=== PATIENT | female | born 1950 | race African-American/Black ===

== ENCOUNTER 2017-05-15 14:44 | Observation (INO) | payer MEDICARE, OTHER ==
[~2017-05-15] VITALS: Ht 165.1 cm; Wt 90.9 kg
--- NOTE | 2017-05-15 15:07 | EKG ---
[facility] [address] [place] [address] Test Date: 2017-05-15 Test Time: 14:50:29 Pat Name: RATNA MUÑOZ Department: Room: Gender: F Public Defender: : 1950 Requested By: TULIO MELO Order Number: [id number] Reading MD: Aguila Penaloza Measurements Intervals [place] Rate: 62 P: 31 RI: 170 QRS: -55 QRSD: 136 T: -29 QT: 468 QTc: 478 Interpretive Statements SINUS RHYTHM ABNORMAL LEFT AXIS DEVIATION LEFT ANTERIOR FASCICULAR BLOCK RIGHT BUNDLE BRANCH BLOCK BIFASCICULAR BLOCK Electronically Signed On 05-17-2017 11:15:35 CDT by Aguila Penaloza
--- NOTE | 2017-05-15 15:12 | EKG ---
[facility] [address] [place] [address] Test Date: 2017-05-15 Test Time: 14:52:51 Pat Name: RATNA MUÑOZ Department: Room: Gender: F Excellence Manager: : 1950 Requested By: TULIO MELO Order Number: [id number] Reading MD: Aguila Penaloza Measurements Intervals [place] Rate: 62 P: 42 GA: 166 QRS: -58 QRSD: 142 T: -22 QT: 454 QTc: 463 Interpretive Statements SINUS RHYTHM ABNORMAL LEFT AXIS DEVIATION LEFT ANTERIOR FASCICULAR BLOCK NON SPECIFIC INTRAVENTRICULAR BLOCK Electronically Signed On 05-17-2017 11:15:43 CDT by Aguila Penaloza
--- NOTE | 2017-05-15 15:24 | RAD ---
Portable chest x-ray without comparison for mid chest pain today. Findings: Right hemidiaphragm is elevated. Lungs are clear. Heart size within normal limits. Postsurgical changes of the neck are seen. There is atherosclerosis. Glenohumeral osteoarthritis on the right is also evident. Impression: 1. No acute cardiopulmonary abnormality. 2. Elevation right hemidiaphragm. 3. Other chronic changes as described
--- NOTE | 2017-05-15 15:36 | PHYS DOC ---
Past Medical History Past Medical History: Asthma, CAD, Diabetes-Type II, Hypertension, Renal Failure Past Surgical History: Appendectomy, Cholecystectomy, Tonsillectomy, Other Additional Past Surgical Histo: SHUNT IN R ARM Alcohol Use: None Drug Use: Marijuana Adult General Chief Complaint Chief Complaint: chest pain HPI HPI Patient is a 66 year old female who presents with chest pain. Patient states it started while she was at dialysis and had about one quarter of her dialysis remaining, she states the pain was sharp, nonradiating, she had associated shortness of breath and diaphoresis. No nausea or vomiting. Patient reports that she had chest pain like this in the past and she had a heart attack. Her last cardiac catheter was greater than one year ago but was reportedly clean. Her MS was in the late s. She sees all of her doctors at , she requested to go there but was on diversion. She has taken a baby aspirin today, her chest pain has since resolved, she denies any cough or fevers, reports that she's had some sinus congestion. Denies h/o PE or DVT. Patient states that she is scheduled for a resection of a cancerous tumor at tomorrow. Review of Systems Review of Systems Constitutional: Denies fever or chills [] Eyes: Denies change in visual acuity, redness, or eye pain [] HENT: Denies nasal congestion or sore throat [] Respiratory: Denies cough or shortness of breath [] Cardiovascular: No additional information not addressed in HPI [] GI: Denies abdominal pain, nausea, vomiting, bloody stools or diarrhea [] : Denies dysuria or hematuria [] Musculoskeletal: Denies back pain or joint pain [] Integument: Denies rash or skin lesions [] Neurologic: Denies headache, focal weakness or sensory changes [] Endocrine: reports polyuria , denies polydipsia [] Current Medications Current Medications Current Medications Medications (Trade) Dose Ordered Sig/Jemima Start Time Stop Time Status Last Admin Dose Admin Aspirin (Lon Aspirin) 325 mg 1X ONCE 05/15/17 16:00 05/15/17 16:01 Cancel Aspirin (Children'S Aspirin) 243 mg 1X ONCE 05/15/17 15:45 05/15/17 15:48 DC 05/15/17 15:56 243 MG Allergies Allergies Allergies Coded Allergies Type Severity Reaction Last Updated Verified Penicillins Allergy Intermediate 05/15/17 Yes atorvastatin Allergy Intermediate 05/15/17 Yes codeine Allergy Unknown 05/15/17 Yes Physical Exam Physical Exam Constitutional: Well developed, well nourished, no acute distress, non-toxic appearance. obese HENT: Normocephalic, atraumatic, bilateral external ears normal, oropharynx moist, no oral exudates, nose normal. [] Eyes: PERRLA, EOMI, conjunctiva normal, no discharge. [] Neck: Normal range of motion, no tenderness, supple, no stridor. [] Cardiovascular:Heart rate regular with regular rhythm, no murmur [] Lungs & Thorax: Bilateral breath sounds clear to auscultation, no wheeze or crackles Abdomen: Bowel sounds normal, soft, no tenderness, no masses, no pulsatile masses. [] Skin: Warm, dry, no erythema, no rash. [] Back: No tenderness, no CVA tenderness. [] Extremities: No tenderness, no cyanosis, no clubbing, ROM intact, no edema. [] Neurologic: Alert and oriented X 3, normal motor function, normal sensory function, no focal deficits noted. [] Psychologic: Affect normal, judgement normal, mood normal. [] Current Patient Data Vital Signs Vital Signs Date Time Temp Pulse Resp B/P (MAP) Pulse Ox O2 Delivery O2 Flow Rate FiO2 05/15/17 16:15 64 19 153/65 (94) 94 Room Air 05/15/17 15:02 98.0 98.0 Lab Values Laboratory Tests Test 05/15/17 15:35 White Blood Count 12.3 x10^3/uL (4.0-11.0) H Red Blood Count 3.59 x10^6/uL (3.50-5.40) Hemoglobin 11.0 g/dL (12.0-15.5) L Hematocrit 33.9 % (36.0-47.0) L Mean Corpuscular Volume 94 fL (79-100) Mean Corpuscular Hemoglobin 31 pg (25-35) Mean Corpuscular Hemoglobin Concent 33 g/dL (31-37) Red Cell Distribution Width 15.5 % (11.5-14.5) H Platelet Count 251 x10^3/uL (140-400) Neutrophils (%) (Auto) 73 % (31-73) Lymphocytes (%) (Auto) 15 % (24-48) L Monocytes (%) (Auto) 9 % (0-9) Eosinophils (%) (Auto) 2 % (0-3) Basophils (%) (Auto) 1 % (0-3) Neutrophils # (Auto) 9.0 x10^3uL (1.8-7.7) H Lymphocytes # (Auto) 1.9 x10^3/uL (1.0-4.8) Monocytes # (Auto) 1.1 x10^3/uL (0.0-1.1) Eosinophils # (Auto) 0.2 x10^3/uL (0.0-0.7) Basophils # (Auto) 0.1 x10^3/uL (0.0-0.2) Prothrombin Time 12.0 SEC (11.7-14.0) Prothrombin Time INR 0.9 (0.8-1.1) Sodium Level 141 mmol/L (136-145) Potassium Level 4.4 mmol/L (3.5-5.1) Chloride Level 100 mmol/L (98-107) Carbon Dioxide Level 34 mmol/L (21-32) H Anion Gap 7 (6-14) Blood Urea Nitrogen 29 mg/dL (7-20) H Creatinine 3.9 mg/dL (0.6-1.0) H Estimated GFR (Cockcroft-Gault) 13.9 BUN/Creatinine Ratio 7 (6-20) Glucose Level 160 mg/dL (70-99) H Calcium Level 8.8 mg/dL (8.5-10.1) Magnesium Level 2.2 mg/dL (1.8-2.4) Total Bilirubin 0.2 mg/dL (0.2-1.0) Aspartate Amino Transferase (AST) 16 U/L (15-37) Alanine Aminotransferase (ALT) 27 U/L (14-59) Alkaline Phosphatase 143 U/L (46-116) H Troponin I Quantitative < 0.017 ng/mL (0.000-0.055) Total Protein 7.1 g/dL (6.4-8.2) Albumin 3.5 g/dL (3.4-5.0) Albumin/Globulin Ratio 1.0 (1.0-1.7) Laboratory Tests 05/15/17 15:35 Laboratory Tests 05/15/17 15:35 EKG EKG 62 bpm, sinus, left axis, QTC 463, QRS 142, no ST elevation or depression, R wave inversion V3-V5, III, avF, no comparison available, interpreted by me.[] Radiology/Procedures Radiology/Procedures 1 view CXR rotated, no acute pulmonary [] Course & Med Decision Making Course & Med Decision Making Pertinent Labs and Imaging studies reviewed. (See chart for details) pt given aspirin, no active chest pain at the time of my evaluation. EKG/labs/ CXR performed. No acute findings, pt admitted to Dr. Collier for ongoing monitoring, serial enzymes. Pt cannot be transferred to as they are currently closed. I contacted as pt was to have surgery on her kidney tomorrow to notify them. Dragon Disclaimer Dragon Disclaimer This electronic medical record was generated, in whole or in part, using a voice recognition dictation system. Departure Departure Impression: Primary Impression: Unstable angina Disposition: ADMITTED INPATIENT Condition: STABLE TULIO MELO MD May 15, 2017 15:36
[2017-05-15] MEDS ORDERED: ASPIRIN CHEWABLE 81 MG TABLET. PO ONE (15:45)
[2017-05-15 15:48] LABS: BASO # 0.1 x10^3/uL (0.0-0.2); BASO % 1 % (0-3); EOS % 2 % (0-3); HEMATOCRIT 33.9 % (36.0-47.0); LYMPH # 1.9 x10^3/uL (1.0-4.8); LYMPH % 15 % (24-48); MEAN CORPUSCULAR HEMOGLOBIN 31 pg (25-35); MEAN CORPUSCULAR HGB CONC 33 g/dL (31-37); MEAN CORPUSCULAR VOLUME 94 fL (79-100); MONO % 9 % (0-9); NEUT % 73 % (31-73); PLATELET COUNT 251 x10^3/uL (140-400); RED BLOOD COUNT 3.59 x10^6/uL (3.50-5.40); RED CELL DISTRIBUTION WIDTH 15.5 % (11.5-14.5); WHITE BLOOD COUNT 12.3 x10^3/uL (4.0-11.0)
[2017-05-15 15:57] LABS: INR 0.9 (0.8-1.1)
[2017-05-15 16:00] LABS: CALCIUM 8.8 mg/dL (8.5-10.1); CREATININE 3.9 mg/dL (0.6-1.0); GFR 13.9; POTASSIUM 4.4 mmol/L (3.5-5.1)
[2017-05-15] MEDS ORDERED: ASPIRIN 325 MG TABLET PO ONE (16:00)
[2017-05-15 16:06] LABS: ALBUMIN 3.5 g/dL (3.4-5.0); MAGNESIUM 2.2 mg/dL (1.8-2.4); TOTAL BILIRUBIN 0.2 mg/dL (0.2-1.0); TOTAL PROTEIN 7.1 g/dL (6.4-8.2)
[2017-05-15 18:15] LABS: BILIRUBIN,URINE SMALL (NEG); GLUCOSE,URINE NEGATIVE (NEG); NITRITE,URINE NEGATIVE (NEG); PROTEIN,URINE 100 mg/dL (NEG-TRACE)
[2017-05-15 18:22] LABS: BACTERIA,URINE MANY /HPF (0-FEW); RBC,URINE >40 /HPF (0-2); SQUAMOUS EPITHELIAL CELL,UR MANY /LPF; WBC,URINE 20-40 /HPF (0-4)
[2017-05-15 18:27] VITALS: BP 132/63
[2017-05-15 19:57] VITALS: BP 148/64
[2017-05-15] MEDS ORDERED: METO25TA9 PO (20:04)
[2017-05-15] MEDS ORDERED: CALC650T6 PO (20:04)
[2017-05-15] MEDS ORDERED: ACET325T9 PO (20:04)
[2017-05-15] MEDS ORDERED: HYDR-2762 PO (20:04)
[2017-05-15] MEDS ORDERED: MULT-650 PO (20:04)
[2017-05-15] MEDS ORDERED: RANO500T2 PO (20:04)
[2017-05-15] MEDS ORDERED: CRESTOR20 MG PO (20:04)
[2017-05-15] MEDS ORDERED: ALBU0.63 NEB (20:04)
[2017-05-15] MEDS ORDERED: OMEP40CA5 PO (20:04)
[2017-05-15] MEDS ORDERED: POLY17PO29 PO (20:04)
[2017-05-15] MEDS ORDERED: DOCU100C28 PO (20:04)
[2017-05-15] MEDS ORDERED: FLUT9.9S NS (20:04)
[2017-05-15] MEDS ORDERED: GABA-586 PO (20:04)
[2017-05-15] MEDS ORDERED: POLY15DR7 OP (20:04)
[2017-05-15] MEDS ORDERED: INSU100C SQ (20:04)
[2017-05-15] MEDS ORDERED: LEVO150T PO (20:04)
[2017-05-15] MEDS ORDERED: NITR0.4T SL (20:04)
[2017-05-15] MEDS ORDERED: LORA0.5T96 PO (20:04)
[2017-05-15] MEDS ORDERED: INSU100I13 SQ (20:04)
[2017-05-15] MEDS ORDERED: AMLO10TA2 PO (20:04)
[2017-05-15] MEDS ORDERED: OMEG-57 PO (20:04)
[2017-05-15] MEDS ORDERED: ASPI-482 PO (20:04)
[2017-05-15] MEDS ORDERED: CHOL10003 PO (20:04)
[2017-05-15] MEDS ORDERED: BUSP15TA PO (20:05)
[2017-05-15 22:58] VITALS: BP 156/59
[2017-05-15] MEDS ORDERED: HYDROcodone/APAP 7.5/325MG 1 TAB TABLET PO PRN (23:30)
[2017-05-15] MEDS ORDERED: NITROGLYCERIN SUBLINGUAL 0.4 MG BOTTLE OF 25. SL PRN (23:30)
[2017-05-16] MEDS ORDERED: INSULIN DETEMIR 300 UNITS/3 ML INSULN.PEN. SQ SCH (00:15)
--- NOTE | 2017-05-16 00:15 | HP ---
ADMIT DATE: 05/15/2017 CHIEF COMPLAINT: Chest pain. HISTORY OF PRESENT ILLNESS: The patient is a 66-year-old woman who presented with chest pain that developed at time of completion of dialysis. The patient relates that pain is in the middle of her chest and actually is recurrent. She has nitro at home and typically takes nitro. At this time, however, she was at dialysis and when she mentioned this to the nurse slowly of activity developed and she was quickly transported to the Emergency Room for further workup. She typically goes to and has all her specialist there but unfortunately, the hospital was on diversion and the patient was brought here. She relates that she actually sees her textile colorist formulator every 3 months and is due for another visit next month. She had a fairly recent admission during which her heart actually was evaluated and found stable. She was told she had angina but does not remember the exact details. Further note, she was scheduled to undergo nephrectomy for RCC tomorrow at . PAST MEDICAL HISTORY: End-stage renal disease, CAD, diabetes, hypertension and asthma. Her shunt is in her right arm. PAST SURGICAL HISTORY: She is status post appendectomy, cholecystectomy and tonsillectomy. FAMILY HISTORY: Multiple family members with high blood pressure and heart disease. She is the only dialysis patient out of 16 siblings. SOCIAL HISTORY: Lives with her family and no toxic habits. ALLERGIES: PENICILLIN, ATORVASTATIN and CODEINE. MEDICATIONS: MAR reconciled with her home medications. REVIEW OF SYSTEMS: Chest pain is now completely resolved. She feels fine and no complaints. PHYSICAL EXAMINATION: VITAL SIGNS: From today show a blood pressure of 148/64, heart rate of 65, respiratory rate at 16 and she is afebrile. GENERAL: This is an obese 66-year-old -[place]ian woman, alert and oriented, no acute distress, very pleasant. HEENT: Shows no scleral icterus. NECK: Supple. LUNGS: Clear to auscultation bilaterally. HEART: Regular rate and rhythm. ABDOMEN: Has positive bowel sounds. Soft and nontender. EXTREMITIES: Show no edema. SKIN: Warm, soft and dry without any rash. LABORATORY DATA: CBC with a WBC of 12.3, hemoglobin 11.0 and platelets of 251. Chemistries with a BUN and creatinine of 29 and 3.9, normal electrolytes, CO2 at 34 and glucose 160. Alkaline phosphatase at 143, otherwise normal LFTs. Urine with 20-40 WBC and many bacteria. IMAGING DATA: Chest x-ray shows no acute cardiopulmonary abnormality. ASSESSMENT AND PLAN: The patient is a 66-year-old woman who presented from dialysis with chest pain and apparently known anginal symptoms without any further intervention planned at least according to her. We will have to try and obtain records from [facility] in the morning. Chest pain is now controlled. We will continue all her home medications. Main issue, however, today is urinary tract infection for which she will require treatment. We will start her empirically on ceftriaxone. This would certainly throw her out of nephrectomy territory at this time. She has already resigned and that surgery would not happen tomorrow. She has an extensive medications list, many medications for coronary artery disease and end-stage renal disease. We will continue these. We will notify Nephrology in the morning if prolonged hospitalization should be indicated. She did get dialysis today and hopefully, will not require further attention tomorrow. JANELLE WU MD DR: ISABEL/nts JOB#: [id number] / [id number] SRINI Blanco MD MTDD
[2017-05-16 03:07] VITALS: BP 152/66
[2017-05-16] MEDS ORDERED: LEVOTHYROXINE 75 MCG TABLET PO SCH (06:00)
[2017-05-16 07:00] VITALS: BP 146/65
[2017-05-16] MEDS ORDERED: INSULIN ASPART 300 UNITS/3 ML INSULN.PEN SQ SCH (07:30)
[2017-05-16] MEDS ORDERED: PANTOPRAZOLE 40 MG TABLET.DR. PO SCH (07:30)
[2017-05-16] MEDS ORDERED: CALCIUM CARBONATE 500 MG TABLET PO SCH (08:00)
[2017-05-16] MEDS ORDERED: ALBUTEROL SULFATE 2.5 MG/3 ML NEBU. NEB SCH (08:00)
[2017-05-16] MEDS ORDERED: RANOLAZINE 500 MG TAB.ER.12H PO SCH (09:00)
[2017-05-16] MEDS ORDERED: FLUTICASONE 50MCG/NASAL SPRAY 16GM BOTTLE. NS SCH (09:00)
[2017-05-16] MEDS ORDERED: amLODIPine BESYLATE 10 MG TABLET PO SCH (09:00)
[2017-05-16] MEDS ORDERED: GABAPENTIN 300 MG CAPSULE. PO SCH (09:00)
[2017-05-16] MEDS ORDERED: LORazepam 0.5 MG TABLET PO SCH (09:00)
[2017-05-16] MEDS ORDERED: NON FORMULARY ITEM (Rosuvastatin Calcium (Crestor) 1 TAB) PO SCH (09:00)
[2017-05-16] MEDS ORDERED: DOCUSATE SODIUM 100 MG CAPSULE. PO SCH (09:00)
[2017-05-16] MEDS ORDERED: ACETAMINOPHEN 325 MG TABLET. PO SCH (09:00)
[2017-05-16] MEDS ORDERED: MULTIVITAMIN with MINERAL TABLET. PO SCH (09:00)
[2017-05-16] MEDS ORDERED: NON FORMULARY ITEM (Albuterol Sulfate (Albuterol Sulfate Neb Soln) 1 VIAL) NEB SCH (09:00)
[2017-05-16] MEDS ORDERED: POLYETHYLENE GLYCOL 3350 17 GM PACKET. PO SCH (09:00)
[2017-05-16] MEDS ORDERED: busPIRone 5 MG TABLET. PO SCH (09:00)
[2017-05-16] MEDS ORDERED: CHOLECALCIFEROL (VITAMIN D3) 1,000 UNIT TABLET PO SCH (09:00)
[2017-05-16] MEDS ORDERED: POLYVINYL ALCOHOL 1.4% OPHTH SOLUTION 15ML BOTTLE. OU SCH (09:00)
[2017-05-16] MEDS ORDERED: ASPIRIN ENTERIC COATED 81 MG TABLET.DR. PO SCH (09:00)
[2017-05-16] MEDS ORDERED: METOPROLOL SUCC 24HR ER 25 MG TAB.ER.24H. PO SCH (09:00)
[2017-05-16] MEDS ORDERED: ONDANSETRON PF 4 MG/2 ML VIAL. IV PRN (09:15)
[2017-05-16 09:37] VITALS: BP 146/65
--- NOTE | 2017-05-16 16:15 | PDOC3 ---
Discharge Summary Visit Information Date of Admission: May 15, 2017 Date of Discharge: May 16, 2017 Admitting Diagnosis: chest pain Final Diagnosis chest pain from poss renal cell cancer ESRD obesity \ Problems Medical Problems: (1) Unstable angina Status: Acute Brief Hospital Course Allergies Allergies Coded Allergies Type Severity Reaction Last Updated Verified Penicillins Allergy Intermediate 05/15/17 Yes atorvastatin Allergy Intermediate 05/15/17 Yes codeine Allergy Unknown 05/15/17 Yes Vital Signs Vital Signs Date Time Temp Pulse Resp B/P (MAP) Pulse Ox O2 Delivery O2 Flow Rate FiO2 05/16/17 09:37 75 146/65 05/16/17 08:02 97 Room Air 05/16/17 07:00 96.5 17 96.5 Lab Results Laboratory Tests Test 05/15/17 15:35 05/15/17 17:55 05/15/17 20:15 05/15/17 22:25 White Blood Count 12.3 x10^3/uL (4.0-11.0) Red Blood Count 3.59 x10^6/uL (3.50-5.40) Hemoglobin 11.0 g/dL (12.0-15.5) Hematocrit 33.9 % (36.0-47.0) Mean Corpuscular Volume 94 fL (79-100) Mean Corpuscular Hemoglobin 31 pg (25-35) Mean Corpuscular Hemoglobin Concent 33 g/dL (31-37) Red Cell Distribution Width 15.5 % (11.5-14.5) Platelet Count 251 x10^3/uL (140-400) Neutrophils (%) (Auto) 73 % (31-73) Lymphocytes (%) (Auto) 15 % (24-48) Monocytes (%) (Auto) 9 % (0-9) Eosinophils (%) (Auto) 2 % (0-3) Basophils (%) (Auto) 1 % (0-3) Neutrophils # (Auto) 9.0 x10^3uL (1.8-7.7) Lymphocytes # (Auto) 1.9 x10^3/uL (1.0-4.8) Monocytes # (Auto) 1.1 x10^3/uL (0.0-1.1) Eosinophils # (Auto) 0.2 x10^3/uL (0.0-0.7) Basophils # (Auto) 0.1 x10^3/uL (0.0-0.2) Prothrombin Time 12.0 SEC (11.7-14.0) Prothromb Time International Ratio 0.9 (0.8-1.1) Sodium Level 141 mmol/L (136-145) Potassium Level 4.4 mmol/L (3.5-5.1) Chloride Level 100 mmol/L (98-107) Carbon Dioxide Level 34 mmol/L (21-32) Anion Gap 7 (6-14) Blood Urea Nitrogen 29 mg/dL (7-20) Creatinine 3.9 mg/dL (0.6-1.0) Estimated GFR (Cockcroft-Gault) 13.9 BUN/Creatinine Ratio 7 (6-20) Glucose Level 160 mg/dL (70-99) Calcium Level 8.8 mg/dL (8.5-10.1) Magnesium Level 2.2 mg/dL (1.8-2.4) Total Bilirubin 0.2 mg/dL (0.2-1.0) Aspartate Amino Transf (AST/SGOT) 16 U/L (15-37) Alanine Aminotransferase (ALT/SGPT) 27 U/L (14-59) Alkaline Phosphatase 143 U/L (46-116) Troponin I Quantitative < 0.017 ng/mL (0.000-0.055) < 0.017 ng/mL (0.000-0.055) Total Protein 7.1 g/dL (6.4-8.2) Albumin 3.5 g/dL (3.4-5.0) Albumin/Globulin Ratio 1.0 (1.0-1.7) Urine Collection Type Unknown Urine Color Yellow Urine Clarity Cloudy Urine pH 8.0 Urine Specific [place] 1.020 Urine Protein 100 mg/dL (NEG-TRACE) Urine Glucose (UA) Negative mg/dL (NEG) Urine Ketones (Stick) Negative mg/dL (NEG) Urine Blood Large (NEG) Urine Nitrite Negative (NEG) Urine Bilirubin Small (NEG) Urine Urobilinogen Dipstick 1.0 mg/dL (0.2 mg/dL) Urine Leukocyte Esterase Large (NEG) Urine RBC >40 /HPF (0-2) Urine WBC 20-40 /HPF (0-4) Urine Squamous Epithelial Cells Many /LPF Urine Bacteria Many /HPF (0-FEW) Glucose (Fingerstick) 159 mg/dL (70-99) Test 05/16/17 04:25 05/16/17 06:26 05/16/17 07:41 Troponin I Quantitative < 0.017 ng/mL (0.000-0.055) Glucose (Fingerstick) 82 mg/dL (70-99) 118 mg/dL (70-99) Laboratory Tests Test 05/15/17 17:55 05/15/17 20:15 05/15/17 22:25 05/16/17 04:25 Urine Collection Type Unknown Urine Color Yellow Urine Clarity Cloudy Urine pH 8.0 Urine Specific [place] 1.020 Urine Protein 100 mg/dL (NEG-TRACE) Urine Glucose (UA) Negative mg/dL (NEG) Urine Ketones (Stick) Negative mg/dL (NEG) Urine Blood Large (NEG) Urine Nitrite Negative (NEG) Urine Bilirubin Small (NEG) Urine Urobilinogen Dipstick 1.0 mg/dL (0.2 mg/dL) Urine Leukocyte Esterase Large (NEG) Urine RBC >40 /HPF (0-2) Urine WBC 20-40 /HPF (0-4) Urine Squamous Epithelial Cells Many /LPF Urine Bacteria Many /HPF (0-FEW) Glucose (Fingerstick) 159 mg/dL (70-99) Troponin I Quantitative < 0.017 ng/mL (0.000-0.055) < 0.017 ng/mL (0.000-0.055) Test 05/16/17 06:26 05/16/17 07:41 Glucose (Fingerstick) 82 mg/dL (70-99) 118 mg/dL (70-99) Brief Hospital Course Ms. Zhou is a 66 old woman who presented with chest pain that developed at time of completion of dialysis. had known prior angina, has f/u with for CV care, recently seen there for same, follows Q3 mos WAS SCHEDULED FOR NEPHRECTOMY AT at 0600 TODAY I told her this may explain her chest pain. she needs to reschedule neprectomy, brigid has Renal cell CA Discharge Information Condition at Discharge: Improved Follow Up: Weeks Disposition/Orders: D/C to Home Scheduled Acetaminophen (Tylenol), 2 TAB PO BID, (Reported) Albuterol Sulfate (Albuterol Sulfate Neb Soln), 1 VIAL NEB QID, (Reported) Amlodipine Besylate (Amlodipine Besylate), 10 MG PO DAILY, (Reported) Aspirin (Aspir 81), 1 TAB PO DAILY, (Reported) Buspirone Hcl (Buspirone Hcl), 7.5 MG PO BID, (Reported) Calcium Carbonate (Calcium Carbonate), 1,250 MG PO DAILY, (Reported) Cholecalciferol (Vitamin D3) (Vitamin D3), 2,000 UNIT PO DAILY, (Reported) Docusate Sodium (Docusate Sodium), 1 CAP PO DAILY, (Reported) Fluticasone Propionate (Flonase Allergy Relief), 2 SPRAYS NS DAILY, (Reported) Gabapentin (Gabapentin), 300 MG PO TID, (Reported) Insulin Glargine,Hum.rec.anlog (Lantus Solostar), 25 UNIT SQ QHS, (Reported) Insulin Lispro (Humalog), 7 UNIT SQ TIDBFRMEAL, (Reported) Levothyroxine Sodium (Synthroid), 1 TAB PO DAILY, (Reported) Lorazepam (Ativan), 0.5 MG PO BID, (Reported) Metoprolol Succinate (Metoprolol Succinate ( Xl )), 50 MG PO BID, (Reported) Multivits-Min/Iron/FA/Lutein (Centrum Silver Women Tablet), 1 EACH PO DAILY, ( Reported) Omeprazole (Omeprazole), 1 CAP PO DAILY, (Reported) Polyethylene Glycol 3350 (Miralax), 1 PACKET PO DAILY, (Reported) Polyvinyl Alcohol/Povidone (Artificial Tears Drops), 15 ML OP DAILY, (Reported) Ranolazine (Ranexa), 1 TAB PO BID, (Reported) Rosuvastatin Calcium (Crestor), 1 TAB PO DAILY, (Reported) Scheduled PRN Hydrocodone Bit/Acetaminophen (Hydrocodone-Apap 7.5-325 ), 1 TAB PO PRN Q8HRS PRN for PAIN, (Reported) Nitroglycerin (Nitrostat), 0.4 MG SL PRN Q5MIN PRN for CHEST PAIN, (Reported) Miscellaneous Medications [place]-3S/Dha/Epa/Fish Oil/D3 (Fish Oil + D3 Softgel), 1 EACH PO, (Reported) Patient Instructions Patient Instructions > 30 min SONY POSADA MD May 16, 2017 16:15
[2017-05-17] MEDS ORDERED: ALBUTEROL SULFATE 2.5 MG/3 ML NEBU. NEB PRN (08:00)
== END 2017-05-16 10:59 | disposition home or self-care (01) ==
LOC: ER 14:44 → 5 NORTH 16:20
PROVIDERS: ADMIT Internal Medicine Hematology & Oncology; ATTEND Internal Medicine Hematology & Oncology
DX: R07.89 Other chest pain (principal); E66.9 Obesity, unspecified; I12.0 Hypertensive chronic kidney disease with stage 5 chronic kidney disease or end stage renal disease; N18.6 End stage renal disease; E11.22 Type 2 diabetes mellitus with diabetic chronic kidney disease; J45.909 Unspecified asthma, uncomplicated; I25.2 Old myocardial infarction; N39.0 Urinary tract infection, site not specified; Z90.49 Acquired absence of other specified parts of digestive tract
CPT/HCPCS: 36415; 71010; 80053; 81001; 82962; 83735; 84484; 85025; 85610; 87086; 93005; 94250; 94640; 94760; 96365; 96372; 96375; 99285; G0378; J0696; J1815; J2405; J7613; G0379

== ENCOUNTER 2017-08-02 01:08 | Emergency (ER) | payer MEDICARE, OTHER ==
[~2017-08-02] VITALS: Ht 165.1 cm; Wt 84.4 kg
[2017-08-02 01:08] VITALS: BP 172/76
[~2017-08-02 01:08] MED LIST: ACET325T9 PO; ALBU0.63 NEB; AMLO10TA2 PO; ASPI-482 PO; BUSP15TA PO; CALC650T6 PO; CHOL10003 PO; CRESTOR20 MG PO; DOCU100C28 PO; FLUT9.9S NS; GABA-586 PO; HYDR-2762 PO; INSU100C SQ; INSU100I13 SQ; LEVO150T PO; LORA0.5T96 PO; METO-239 PO; MULT-650 PO; NITR0.4T SL; OMEG-57 PO; OMEP40CA5 PO; POLY15DR7 OP; POLY17PO29 PO; RANO500T2 PO
[2017-08-02] MEDS ORDERED: IBUPROFEN 800 MG TABLET. PO ONE (02:30)
--- NOTE | 2017-08-02 02:47 | PHYS DOC ---
Past Medical History Past Medical History: Anxiety, Asthma, CAD, Diabetes-Type II, Hypertension, Renal Failure Additional Past Medical Histor: NEUROPATHY Past Surgical History: Appendectomy, Cholecystectomy, Tonsillectomy, Other Additional Past Surgical Histo: AV SHUNT IN L ARM,LEFT ROTATOR CUFF, KIDNEY "NEEDLE FREEZING" 2 CA Alcohol Use: None Drug Use: Marijuana Adult General Chief Complaint Chief Complaint: UPPER EXTREMITY PAIN HPI HPI 66-year-old female who lives at a long term currently, now presents emergency department complaining of pain at the point of her left elbow. Patient states she awoke this evening with soreness on the point of her left elbow. It's very tender but it's not red or hot. She did fall recently but did not think she injured the elbow during the fall. She has normal use and range of motion the elbow and it only hurts when the point of her olecranon is palpated. No other complaints Review of Systems Review of Systems Constitutional: Denies fever or chills [] Eyes: Denies change in visual acuity, redness, or eye pain [] HENT: Denies nasal congestion or sore throat [] Respiratory: Denies cough or shortness of breath [] Cardiovascular: No additional information not addressed in HPI [] GI: Denies abdominal pain, nausea, vomiting, bloody stools or diarrhea [] : Denies dysuria or hematuria [] Musculoskeletal: Denies back pain or joint pain [] Integument: Denies rash or skin lesions [] Neurologic: Denies headache, focal weakness or sensory changes [] Endocrine: Denies polyuria or polydipsia [] All other systems were reviewed and found to be within normal limits, except as documented in this note. Current Medications Current Medications Current Medications Medications (Trade) Dose Ordered Sig/Jemima Start Time Stop Time Status Last Admin Dose Admin Ibuprofen (Motrin) 800 mg 1X ONCE 08/02/17 02:30 08/02/17 02:31 DC 08/02/17 02:43 800 MG Allergies Allergies Allergies Coded Allergies Type Severity Reaction Last Updated Verified Penicillins Allergy Intermediate "I SWELL UP AND CANT BREATHE" 08/02/17 Yes atorvastatin Allergy Intermediate "DIZZY" 08/02/17 Yes Iodine and Iodide Containing Produc Allergy Unknown "I SWELL UP AND CANT BREATHE" 08/02/17 Yes adhesive tape Allergy Unknown RASH 08/02/17 Yes cat dander Allergy Unknown SNEEZING 08/02/17 Yes ceftriaxone Allergy Unknown "I DONT KNOWN" 08/02/17 Yes codeine Allergy Unknown "I CANT BREATHE AND SWELLUP " 08/02/17 Yes Physical Exam Physical Exam 66-year-old female in no acute distress. No smoke atraumatic clear lungs regular rate and rhythm benign abdomen normal extremities except tenderness at the point of her left elbow. No erythema or warmth. No fluid collection. Normal painless range of motion of the elbow however it's tender with palpation at the bursa site. Constitutional: Well developed, well nourished, no acute distress, non-toxic appearance. [] HENT: Normocephalic, atraumatic, bilateral external ears normal, oropharynx moist, no oral exudates, nose normal. [] Eyes: PERRLA, EOMI, conjunctiva normal, no discharge. [] Neck: Normal range of motion, no tenderness, supple, no stridor. [] Cardiovascular:Heart rate regular rhythm, no murmur [] Lungs & Thorax: Bilateral breath sounds clear to auscultation [] Abdomen: Bowel sounds normal, soft, no tenderness, no masses, no pulsatile masses. [] Skin: Warm, dry, no erythema, no rash. [] Back: No tenderness, no CVA tenderness. [] Extremities: No tenderness, no cyanosis, no clubbing, ROM intact, no edema. [] Neurologic: Alert and oriented X 3, normal motor function, normal sensory function, no focal deficits noted. [] Psychologic: Affect normal, judgement normal, mood normal. [] Current Patient Data Vital Signs Vital Signs Date Time Temp Pulse Resp B/P (MAP) Pulse Ox O2 Delivery O2 Flow Rate FiO2 08/02/17 01:08 98.0 99 20 172/76 (108) 100 98.0 EKG EKG [] Radiology/Procedures Radiology/Procedures Left elbow with no acute bony abnormality. Unremarkable study interpreted by me Course & Med Decision Making Course & Med Decision Making Pertinent Labs and Imaging studies reviewed. (See chart for details) Signs and symptoms consistent with bursitis left olecranon bursa. No evidence of cellulitis or abscess. No bony abnormality. Patient were to take NSAIDs and follow-up with her primary care doctor. She will use an ice pack as needed. No further workup or treatment indicated patient agrees with outpatient follow-up and strict return precautions given [] Dragon Disclaimer Dragon Disclaimer This electronic medical record was generated, in whole or in part, using a voice recognition dictation system. Departure Departure Impression: Primary Impression: Olecranon bursitis, left elbow Additional Impression: Left elbow pain Disposition: HOME, SELF-CARE Condition: STABLE Referrals: SRINI FREEMAN MD (PCP) Patient Instructions: Olecranon Bursitis Additional Instructions: It appears that you have bursitis of your left elbow. This means that the fluid sac which overlies your joint is inflamed. This is the reason for your tenderness. You have no abnormalities of the bones of your elbow and no evidence of recent fracture or other bone lesion. Take ibuprofen every 6 hours as needed for discomfort. He can also consider an ice pack if you find this to be helpful for your symptoms. Follow-up with your doctor tomorrow and return immediately for new severe worsening symptoms Problem Qualifiers MAGUI MILLER MD Aug 02, 2017 02:47
--- NOTE | 2017-08-02 07:07 | RAD ---
3 view left elbow radiograph 08/02/2017 Clinical indication: Left elbow pain. Comparison: None. Findings: No acute fracture or traumatic malalignment. Joint spaces are maintained. No significant joint effusion. Impression: No acute osseous abnormality.
== END 2017-08-02 03:28 | disposition home or self-care (01) ==
LOC: ER 01:08
DX: M70.22 Olecranon bursitis, left elbow (principal); E11.40 Type 2 diabetes mellitus with diabetic neuropathy, unspecified; I12.9 Hypertensive chronic kidney disease with stage 1 through stage 4 chronic kidney disease, or unspecified chronic kidney disease; E11.22 Type 2 diabetes mellitus with diabetic chronic kidney disease; N18.9 Chronic kidney disease, unspecified; J45.909 Unspecified asthma, uncomplicated; I25.10 Atherosclerotic heart disease of native coronary artery without angina pectoris; Z90.49 Acquired absence of other specified parts of digestive tract; Z88.0 Allergy status to penicillin; Z88.5 Allergy status to narcotic agent; Z88.8 Allergy status to other drugs, medicaments and biological substances; Z91.041 Radiographic dye allergy status
CPT/HCPCS: 73080; 99284